=== PATIENT | female | born 1940 | race Caucasian/White ===

== ENCOUNTER 2020-03-03 08:59 | Inpatient (IN) | payer MEDICARE, MEDICAID ==
[~2020-03-03] VITALS: Ht 160 cm; Wt 74.8 kg
[~2020-03-03 08:59] MED LIST: ASPI-1497 PO; CLOP75TA4 PO; GABA-533 PO; GLYB2.5T4 PO; HYDR-4009 PO; LISI40TA4 PO; LORA0.5T2 PO; METF-416 PO; OXYC-90 PO; RANI150T7 PO
[2020-03-03] MEDS ORDERED: ACETAMINOPHEN 325MG TABLET PO ONE (10:00)
[2020-03-03] MEDS ORDERED: HYDROCODONE/ACETAMINOPHEN 5/325MG TABLET PO STA (12:13)
[2020-03-03 12:53] LABS: CHLORIDE 100 mEq/L (98-107)
[2020-03-03 13:33] LABS: BASOPHILS % 0.5 % (0.0-2.0); EOSINOPHILS % 0.1 % (0.0-5.0); HEMATOCRIT. 29.4 % (36.0-48.0); HEMOGLOBIN. 9.6 g/dL (12.0-16.0); LYMPHOCYTES % 7.8 % (20.0-50.0); MEAN CORPUSCULAR HEMOGLOBIN 24.8 pg (28.0-32.0); MEAN CORPUSCULAR VOLUME 75.9 fL (81.0-99.0); MEAN PLATELET VOLUME 8.6 fl (7.4-10.4); MONOCYTES % 10.2 % (2.0-8.0); NEUTROPHILS % 81.4 % (40.0-76.0); PLATELET 227 x1000/uL (130-400); RED BLOOD CELL COUNT 3.87 mill/uL (4.2-5.4); RED CELL DISTRIBUTION WIDTH 16.5 % (11.6-14.6)
[2020-03-03 16:40] VITALS: BP 153/69
[2020-03-03 17:15] VITALS: BP 152/69
[2020-03-03] MEDS ORDERED: DEXTROSE 50% WATER 50ML SYRINGE IV PRN (18:00)
[2020-03-03] MEDS ORDERED: CLONIDINE 0.1MG TABLET PO PRN (18:00)
[2020-03-03] MEDS ORDERED: ACETAMINOPHEN 325MG TABLET PO PRN ×2 (19:00)
[2020-03-03] MEDS ORDERED: ONDANSETRON HCL 4MG/2ML INJ IV PRN (19:00)
[2020-03-03] MEDS ORDERED: LORAZEPAM 0.5MG TABLET PO PRN (19:00)
[2020-03-03] MEDS ORDERED: DIPHENHYDRAMINE 50MG/ML VIAL IV PRN (19:00)
[2020-03-03] MEDS ORDERED: MAGNESIUM/ALUMINUM HYDROXIDE/SIMETHICONE 30ML UDC PO PRN (19:00)
[2020-03-03 20:00] VITALS: BP 190/76
[2020-03-03] MEDS: FAMOTIDINE 20MG TABLET PO SCH (20:36)
[2020-03-03] MEDS: HYDROCODONE/ACETAMINOPHEN 10/325MG TABLET PO PRN (20:36)
[2020-03-03] MEDS: LISINOPRIL 20MG TABLET PO SCH (20:37)
[2020-03-03] MEDS: BLOOD SUGAR DIAGNOSTIC STRIP TEST SCH (21:03)
[2020-03-03] MEDS: INSULIN LISPRO 100 UNITS/ML SUBCUT SCH (21:05)
[2020-03-03] MEDS: SODIUM CHLORIDE 0.9% INJ 3ML FLUSH IVF SCH (23:07)
[2020-03-03] MEDS: GABAPENTIN 400MG CAPSULE PO SCH (23:12)
[2020-03-04] VITALS: BP 102/61
[2020-03-04 04:00] VITALS: BP 112/70
[2020-03-04] MEDS: SODIUM CHLORIDE 0.9% INJ 3ML FLUSH IVF SCH ×3 (05:07→21:22)
[2020-03-04] MEDS: GABAPENTIN 400MG CAPSULE PO SCH ×3 (05:43→22:00)
[2020-03-04] MEDS: GLYBURIDE 2.5MG TABLET PO SCH (05:43)
[2020-03-04] MEDS: HYDROCODONE/ACETAMINOPHEN 10/325MG TABLET PO PRN (05:43)
[2020-03-04] MEDS: BLOOD SUGAR DIAGNOSTIC STRIP TEST SCH ×4 (07:02→21:20)
[2020-03-04 08:00] VITALS: BP 112/62
[2020-03-04] MEDS: METFORMIN HCL 500MG TABLET PO SCH ×2 (08:53→17:47)
[2020-03-04] MEDS: CLOPIDOGREL 75MG TABLET PO SCH (09:36)
[2020-03-04] MEDS: ASPIRIN 81MG EC TABLET PO SCH (09:36)
[2020-03-04] MEDS: LISINOPRIL 20MG TABLET PO SCH ×2 (09:36→21:00)
[2020-03-04] MEDS: INSULIN LISPRO 100 UNITS/ML SUBCUT SCH ×4 (09:47→21:00)
[2020-03-04 12:00] VITALS: BP 109/65
[2020-03-04 16:00] VITALS: BP 98/61
[2020-03-04 20:00] VITALS: BP 97/43
[2020-03-04] MEDS: FAMOTIDINE 20MG TABLET PO SCH (21:21)
[2020-03-05] VITALS (7 sets, daily range): BP systolic 99–129; BP diastolic 46–97
[2020-03-05] MEDS: GABAPENTIN 400MG CAPSULE PO SCH ×3 (06:23→21:16)
[2020-03-05] MEDS: SODIUM CHLORIDE 0.9% INJ 3ML FLUSH IVF SCH ×3 (06:23→21:25)
[2020-03-05] MEDS: GLYBURIDE 2.5MG TABLET PO SCH (06:23)
[2020-03-05] MEDS: BLOOD SUGAR DIAGNOSTIC STRIP TEST SCH ×4 (06:23→21:16)
[2020-03-05] MEDS: INSULIN LISPRO 100 UNITS/ML SUBCUT SCH ×4 (07:50→21:24)
[2020-03-05] MEDS: LISINOPRIL 20MG TABLET PO SCH ×2 (09:00→21:15)
[2020-03-05] MEDS: METFORMIN HCL 500MG TABLET PO SCH ×2 (09:57→17:25)
[2020-03-05] MEDS: ASPIRIN 81MG EC TABLET PO SCH (09:58)
[2020-03-05] MEDS: CLOPIDOGREL 75MG TABLET PO SCH (09:58)
[2020-03-05] MEDS: FAMOTIDINE 20MG TABLET PO SCH (21:16)
[2020-03-06] VITALS: BP 116/54
[2020-03-06 04:00] VITALS: BP 136/46
[2020-03-06] MEDS: GABAPENTIN 400MG CAPSULE PO SCH ×3 (06:14→21:30)
[2020-03-06] MEDS: BLOOD SUGAR DIAGNOSTIC STRIP TEST SCH ×4 (06:14→21:00)
[2020-03-06] MEDS: GLYBURIDE 2.5MG TABLET PO SCH (06:14)
[2020-03-06] MEDS: INSULIN LISPRO 100 UNITS/ML SUBCUT SCH ×4 (07:50→21:00)
[2020-03-06 08:00] VITALS: BP 142/54
[2020-03-06] MEDS: METFORMIN HCL 500MG TABLET PO SCH ×2 (08:43→17:54)
[2020-03-06] MEDS: CLOPIDOGREL 75MG TABLET PO SCH (08:44)
[2020-03-06] MEDS: ASPIRIN 81MG EC TABLET PO SCH (08:44)
[2020-03-06] MEDS: LISINOPRIL 20MG TABLET PO SCH ×2 (08:57→21:00)
[2020-03-06 12:00] VITALS: BP 108/40
[2020-03-06] MEDS: SODIUM CHLORIDE 0.9% INJ 3ML FLUSH IVF SCH (14:00)
[2020-03-06 16:00] VITALS: BP 119/79
[2020-03-06 20:00] VITALS: BP 104/75
[2020-03-06] MEDS: FAMOTIDINE 20MG TABLET PO SCH (21:30)
[2020-03-06] MEDS ORDERED: INSULIN GLARGINE UD 100 UNITS/ML SYR SUBCUT SCH (22:00)
[2020-03-07] VITALS: BP 121/67
[2020-03-07 04:00] VITALS: BP 112/49
[2020-03-07] MEDS: SODIUM CHLORIDE 0.9% INJ 3ML FLUSH IVF SCH ×2 (06:24→14:02)
[2020-03-07] MEDS: GABAPENTIN 400MG CAPSULE PO SCH ×2 (06:24→13:13)
[2020-03-07] MEDS: GLYBURIDE 2.5MG TABLET PO SCH (06:24)
[2020-03-07] MEDS: INSULIN LISPRO 100 UNITS/ML SUBCUT SCH ×2 (07:50→12:50)
[2020-03-07] MEDS: BLOOD SUGAR DIAGNOSTIC STRIP TEST SCH ×2 (07:55→12:20)
[2020-03-07 08:00] VITALS: BP 130/47
[2020-03-07] MEDS ORDERED: SODIUM CHLORIDE 0.9% 100 ML IV ONE (08:15)
[2020-03-07] MEDS ORDERED: SODIUM CHLORIDE 0.9% 1,000 ML IV ONE (08:30)
[2020-03-07] MEDS: ASPIRIN 81MG EC TABLET PO SCH (09:14)
[2020-03-07] MEDS: CLOPIDOGREL 75MG TABLET PO SCH (09:14)
[2020-03-07] MEDS: LISINOPRIL 20MG TABLET PO SCH (09:15)
[2020-03-07] MEDS: METFORMIN HCL 500MG TABLET PO SCH ×2 (09:17→17:31)
[2020-03-07 09:50] LABS: CLARITY URINE CLOUDY (CLEAR); COLOR URINE YELLOW (YELLOW); KETONES URINE TRACE (NEGATIVE); LEUKOCYTE ESTERASE URINE NEGATIVE (NEGATIVE); NITRITE URINE NEGATIVE (NEGATIVE); OCCULT BLOOD URINE NEGATIVE (NEGATIVE); PROTEIN URINE TRACE (NEGATIVE); SPECIFIC GRAVITY URINE 1.021 (1.005-1.030)
[2020-03-07 12:00] VITALS: BP 133/56
[2020-03-07 16:00] VITALS: BP 129/47
[2020-03-07] MEDS ORDERED: TAMSULOSIN HCL 0.4MG SR CAPSULE PO SCH (21:00)
[2020-03-07] MEDS ORDERED: ATORVASTATIN CALCIUM 20MG TABLET PO SCH (21:00)
== END 2020-03-07 18:09 | DRG 562 ==
LOC: ER 09:24 → 6EST 14:11 → ENRESERV 15:00 → 6EST 16:56
PROVIDERS: ADMIT Internal Medicine; ATTEND Internal Medicine
DX: S82.035A Nondisplaced transverse fracture of left patella, initial encounter for closed fracture (principal); G93.41 Metabolic encephalopathy; I63.81 Other cerebral infarction due to occlusion or stenosis of small artery; E11.51 Type 2 diabetes mellitus with diabetic peripheral angiopathy without gangrene; I10 Essential (primary) hypertension; I25.10 Atherosclerotic heart disease of native coronary artery without angina pectoris; W18.30XA Fall on same level, unspecified, initial encounter; E78.00 Pure hypercholesterolemia, unspecified; F17.200 Nicotine dependence, unspecified, uncomplicated; D64.9 Anemia, unspecified; F03.90 Unspecified dementia, unspecified severity, without behavioral disturbance, psychotic disturbance, mood disturbance, and anxiety; R26.2 Difficulty in walking, not elsewhere classified; R41.89 Other symptoms and signs involving cognitive functions and awareness; M19.90 Unspecified osteoarthritis, unspecified site; Z96.642 Presence of left artificial hip joint; R33.9 Retention of urine, unspecified; I25.2 Old myocardial infarction; Z86.73 Personal history of transient ischemic attack (TIA), and cerebral infarction without residual deficits; Z79.891 Long term (current) use of opiate analgesic; Z79.82 Long term (current) use of aspirin; Z79.899 Other long term (current) drug therapy; Y93.89 Activity, other specified; Y92.89 Other specified places as the place of occurrence of the external cause; Y99.8 Other external cause status; Z95.5 Presence of coronary angioplasty implant and graft
CPT/HCPCS: 36415; 70551; 73560; 80053; 80061; 81003; 82140; 82962; 83036; 85025; 92523; 92610; 93005; 93306; 93880; 93970; 97162; 97166; 97530; 97535; 99285; J1200; J1815

== ENCOUNTER 2020-03-07 18:20 | Inpatient (IN) | payer MEDICARE, MEDICAID ==
[~2020-03-07] VITALS: Ht 160 cm; Wt 74.4 kg
[2020-03-07] MEDS ORDERED: DEXTROSE 50% WATER 50ML SYRINGE IV PRN (19:15)
[2020-03-07] MEDS ORDERED: DIPHENHYDRAMINE 25MG CAPSULE PO PRN (19:30)
[2020-03-07] MEDS ORDERED: CLONIDINE 0.1MG TABLET PO PRN (19:30)
[2020-03-07] MEDS ORDERED: HYDROCODONE/ACETAMINOPHEN 10/325MG TABLET PO PRN (19:50)
[2020-03-07] MEDS ORDERED: HYDROCODONE/ACETAMINOPHEN 5/325MG TABLET PO PRN (19:51)
[2020-03-07 20:00] VITALS: BP 136/44
[2020-03-07] MEDS: BLOOD SUGAR DIAGNOSTIC STRIP TEST SCH (20:11)
[2020-03-07] MEDS: INSULIN GLARGINE UD 100 UNITS/ML SYR SUBCUT SCH (20:16)
[2020-03-07] MEDS: INSULIN LISPRO 100 UNITS/ML SUBCUT SCH (20:16)
[2020-03-07] MEDS: FAMOTIDINE 20MG TABLET PO SCH (21:18)
[2020-03-07] MEDS: TAMSULOSIN HCL 0.4MG SR CAPSULE PO SCH (21:18)
[2020-03-07] MEDS: GABAPENTIN 400MG CAPSULE PO SCH (21:18)
[2020-03-07] MEDS: ATORVASTATIN CALCIUM 20MG TABLET PO SCH (21:19)
[2020-03-07] MEDS: LISINOPRIL 20MG TABLET PO SCH (21:19)
[2020-03-08] MEDS: LORAZEPAM 0.5MG TABLET PO PRN ×2 (01:41→21:39)
[2020-03-08] MEDS: BISACODYL 5MG TABLET PO PRN (05:21)
[2020-03-08] MEDS: BLOOD SUGAR DIAGNOSTIC STRIP TEST SCH ×4 (05:36→21:25)
[2020-03-08] MEDS: GABAPENTIN 400MG CAPSULE PO SCH ×3 (06:01→21:24)
[2020-03-08] MEDS: GLYBURIDE 2.5MG TABLET PO SCH (06:02)
[2020-03-08 06:35] LABS: BASOPHILS % 0.6 % (0.0-2.0); EOSINOPHILS % 2.1 % (0.0-5.0); HEMOGLOBIN. 9.1 g/dL (12.0-16.0); LYMPHOCYTES % 17.3 % (20.0-50.0); MEAN CORPUSCULAR HEMOGLOBIN 24.3 pg (28.0-32.0); MEAN CORPUSCULAR VOLUME 77.3 fL (81.0-99.0); MEAN PLATELET VOLUME 8.5 fl (7.4-10.4); PLATELET 278 x1000/uL (130-400); RED BLOOD CELL COUNT 3.75 mill/uL (4.2-5.4)
[2020-03-08 06:50] LABS: CHLORIDE 107 mEq/L (98-107)
[2020-03-08 08:00] VITALS: BP 127/64
[2020-03-08] MEDS: METFORMIN HCL 500MG TABLET PO SCH (08:49)
[2020-03-08] MEDS: ASPIRIN 81MG TABLET PO SCH (08:49)
[2020-03-08] MEDS: CLOPIDOGREL 75MG TABLET PO SCH (08:49)
[2020-03-08] MEDS: LISINOPRIL 20MG TABLET PO SCH ×2 (08:49→21:25)
[2020-03-08] MEDS: INSULIN LISPRO 100 UNITS/ML SUBCUT SCH ×4 (08:50→21:00)
[2020-03-08] MEDS: SODIUM CHLORIDE 0.9% 1,000 ML IV SCH ×2 (08:50→17:51)
[2020-03-08] MEDS: NICOTINE 14MG PATCH TD SCH (10:40)
[2020-03-08 20:00] VITALS: BP 131/72
[2020-03-08] MEDS: ATORVASTATIN CALCIUM 20MG TABLET PO SCH (21:24)
[2020-03-08] MEDS: FAMOTIDINE 20MG TABLET PO SCH (21:24)
[2020-03-08] MEDS: TAMSULOSIN HCL 0.4MG SR CAPSULE PO SCH (21:25)
[2020-03-08] MEDS: INSULIN GLARGINE UD 100 UNITS/ML SYR SUBCUT SCH (21:26)
[2020-03-09 03:11] LABS: CLARITY URINE CLEAR (CLEAR); COLOR URINE YELLOW (YELLOW); KETONES URINE NEGATIVE (NEGATIVE); LEUKOCYTE ESTERASE URINE NEGATIVE (NEGATIVE); NITRITE URINE NEGATIVE (NEGATIVE); OCCULT BLOOD URINE NEGATIVE (NEGATIVE); PROTEIN URINE TRACE (NEGATIVE)
[2020-03-09] MEDS: SODIUM CHLORIDE 0.9% 1,000 ML IV SCH ×2 (05:40→14:04)
[2020-03-09] MEDS: BLOOD SUGAR DIAGNOSTIC STRIP TEST SCH ×4 (06:01→21:00)
[2020-03-09] MEDS: GABAPENTIN 400MG CAPSULE PO SCH ×3 (06:01→21:59)
[2020-03-09] MEDS: GLYBURIDE 2.5MG TABLET PO SCH (06:01)
[2020-03-09 07:18] LABS: BASOPHILS % 0.5 % (0.0-2.0); EOSINOPHILS % 2.1 % (0.0-5.0); HEMATOCRIT. 26.8 % (36.0-48.0); HEMOGLOBIN. 8.7 g/dL (12.0-16.0); LYMPHOCYTES % 21.3 % (20.0-50.0); MEAN CORPUSCULAR HEMOGLOBIN 24.7 pg (28.0-32.0); MEAN CORPUSCULAR VOLUME 76.4 fL (81.0-99.0); MEAN PLATELET VOLUME 8.3 fl (7.4-10.4); MONOCYTES % 11.1 % (2.0-8.0); PLATELET 293 x1000/uL (130-400); RED BLOOD CELL COUNT 3.51 mill/uL (4.2-5.4); RED CELL DISTRIBUTION WIDTH 16.8 % (11.6-14.6)
[2020-03-09] MEDS: INSULIN LISPRO 100 UNITS/ML SUBCUT SCH ×4 (07:24→21:00)
[2020-03-09 07:51] LABS: CHLORIDE 107 mEq/L (98-107)
[2020-03-09 07:58] VITALS: BP 135/69
[2020-03-09 08:04] LABS: PHOSPHORUS 2.9 mg/dL (2.5-4.9); TOTAL IRON BINDING CAPACITY 285 ug/dL (250-450)
[2020-03-09] MEDS: ASPIRIN 81MG TABLET PO SCH (08:29)
[2020-03-09] MEDS: LISINOPRIL 20MG TABLET PO SCH ×2 (08:29→22:00)
[2020-03-09] MEDS: NICOTINE 14MG PATCH TD SCH (08:29)
[2020-03-09] MEDS: CLOPIDOGREL 75MG TABLET PO SCH (08:29)
[2020-03-09 09:57] LABS: FOLIC ACID (FOLATE) SERUM 17.6 ng/mL (>5.38)
[2020-03-09] MEDS: CYANOCOBALAMIN 1000MCG/ML VIAL IM SCH (15:51)
[2020-03-09 20:00] VITALS: BP 149/75
[2020-03-09] MEDS: IRON SUCROSE COMPLEX 100 MG in SODIUM CHLORIDE 0.9% 100 ML IV SCH (21:58)
[2020-03-09] MEDS: ATORVASTATIN CALCIUM 20MG TABLET PO SCH (21:59)
[2020-03-09] MEDS: FAMOTIDINE 20MG TABLET PO SCH (21:59)
[2020-03-09] MEDS: TAMSULOSIN HCL 0.4MG SR CAPSULE PO SCH (21:59)
[2020-03-09] MEDS: INSULIN GLARGINE UD 100 UNITS/ML SYR SUBCUT SCH (22:52)
[2020-03-10] MEDS: GABAPENTIN 400MG CAPSULE PO SCH ×3 (06:23→21:38)
[2020-03-10] MEDS: GLYBURIDE 2.5MG TABLET PO SCH (06:23)
[2020-03-10] MEDS: SODIUM CHLORIDE 0.9% 1,000 ML IV SCH ×2 (06:24→10:00)
[2020-03-10] MEDS: BLOOD SUGAR DIAGNOSTIC STRIP TEST SCH ×4 (06:40→21:38)
[2020-03-10 09:00] VITALS: BP 154/93
[2020-03-10] MEDS: INSULIN LISPRO 100 UNITS/ML SUBCUT SCH ×4 (09:00→21:00)
[2020-03-10] MEDS: CLOPIDOGREL 75MG TABLET PO SCH (09:30)
[2020-03-10] MEDS: LISINOPRIL 20MG TABLET PO SCH ×2 (09:30→21:38)
[2020-03-10] MEDS: CYANOCOBALAMIN 1000MCG/ML VIAL IM SCH (09:30)
[2020-03-10] MEDS: ASPIRIN 81MG TABLET PO SCH (09:30)
[2020-03-10] MEDS: NICOTINE 14MG PATCH TD SCH (09:33)
[2020-03-10] MEDS: MAGNESIUM/ALUMINUM HYDROXIDE/SIMETHICONE 30ML UDC PO PRN (11:55)
[2020-03-10 20:00] VITALS: BP 134/68
[2020-03-10] MEDS: IRON SUCROSE COMPLEX 100 MG in SODIUM CHLORIDE 0.9% 100 ML IV SCH (21:35)
[2020-03-10] MEDS: FAMOTIDINE 20MG TABLET PO SCH (21:36)
[2020-03-10] MEDS: TAMSULOSIN HCL 0.4MG SR CAPSULE PO SCH (21:37)
[2020-03-10] MEDS: ATORVASTATIN CALCIUM 20MG TABLET PO SCH (21:37)
[2020-03-10] MEDS: INSULIN GLARGINE UD 100 UNITS/ML SYR SUBCUT SCH (22:58)
[2020-03-11] MEDS: SODIUM CHLORIDE 0.9% 1,000 ML IV SCH ×3 (00:53→16:39)
[2020-03-11] MEDS: GABAPENTIN 400MG CAPSULE PO SCH ×3 (06:21→21:13)
[2020-03-11] MEDS: GLYBURIDE 2.5MG TABLET PO SCH (06:21)
[2020-03-11] MEDS: BLOOD SUGAR DIAGNOSTIC STRIP TEST SCH ×4 (06:21→20:45)
[2020-03-11 07:23] VITALS: BP 140/62
[2020-03-11 07:24] LABS: BASOPHILS % 0.3 % (0.0-2.0); EOSINOPHILS % 1.5 % (0.0-5.0); HEMATOCRIT. 24.1 % (36.0-48.0); HEMOGLOBIN. 7.6 g/dL (12.0-16.0); LYMPHOCYTES % 19.7 % (20.0-50.0); MEAN CORPUSCULAR HEMOGLOBIN 24.4 pg (28.0-32.0); MEAN CORPUSCULAR VOLUME 77.3 fL (81.0-99.0); MONOCYTES % 8.2 % (2.0-8.0); NEUTROPHILS % 70.3 % (40.0-76.0); PLATELET 284 x1000/uL (130-400); RED BLOOD CELL COUNT 3.12 mill/uL (4.2-5.4); RED CELL DISTRIBUTION WIDTH 16.8 % (11.6-14.6)
[2020-03-11] MEDS: ASPIRIN 81MG TABLET PO SCH (08:57)
[2020-03-11] MEDS: LISINOPRIL 20MG TABLET PO SCH ×2 (08:57→20:44)
[2020-03-11] MEDS: CLOPIDOGREL 75MG TABLET PO SCH (08:57)
[2020-03-11] MEDS: NICOTINE 14MG PATCH TD SCH (08:57)
[2020-03-11] MEDS: CYANOCOBALAMIN 1000MCG/ML VIAL IM SCH (08:57)
[2020-03-11] MEDS: METFORMIN HCL 500MG TABLET PO SCH ×2 (08:57→16:38)
[2020-03-11] MEDS: INSULIN LISPRO 100 UNITS/ML SUBCUT SCH ×4 (08:58→20:50)
[2020-03-11] MEDS ORDERED: LACTULOSE 20G/30ML UDC PO NR (17:04)
[2020-03-11 20:00] VITALS: BP 133/63
[2020-03-11] MEDS: IRON SUCROSE COMPLEX 100 MG in SODIUM CHLORIDE 0.9% 100 ML IV SCH (20:44)
[2020-03-11] MEDS: FAMOTIDINE 20MG TABLET PO SCH (20:44)
[2020-03-11] MEDS: ATORVASTATIN CALCIUM 20MG TABLET PO SCH (20:44)
[2020-03-11] MEDS: TAMSULOSIN HCL 0.4MG SR CAPSULE PO SCH (20:45)
[2020-03-11] MEDS: INSULIN GLARGINE UD 100 UNITS/ML SYR SUBCUT SCH (21:13)
[2020-03-12] MEDS: SODIUM CHLORIDE 0.9% 1,000 ML IV SCH ×2 (02:07→12:54)
[2020-03-12 05:44] LABS: BASOPHILS % 0.5 % (0.0-2.0); HEMATOCRIT. 24.3 % (36.0-48.0); HEMOGLOBIN. 7.9 g/dL (12.0-16.0); LYMPHOCYTES % 23.6 % (20.0-50.0); MEAN CORPUSCULAR VOLUME 76.7 fL (81.0-99.0); MEAN PLATELET VOLUME 8.1 fl (7.4-10.4); MONOCYTES % 9.1 % (2.0-8.0); NEUTROPHILS % 64.8 % (40.0-76.0); PLATELET 299 x1000/uL (130-400); RED BLOOD CELL COUNT 3.17 mill/uL (4.2-5.4)
[2020-03-12] MEDS: ACETAMINOPHEN 325MG TABLET PO PRN ×2 (05:53→20:52)
[2020-03-12] MEDS: GABAPENTIN 400MG CAPSULE PO SCH ×3 (05:53→20:53)
[2020-03-12] MEDS: BLOOD SUGAR DIAGNOSTIC STRIP TEST SCH ×4 (05:53→21:00)
[2020-03-12] MEDS: GLYBURIDE 2.5MG TABLET PO SCH (05:53)
[2020-03-12] MEDS: INSULIN LISPRO 100 UNITS/ML SUBCUT SCH ×4 (06:01→21:00)
[2020-03-12 08:18] VITALS: BP 148/63
[2020-03-12] MEDS: NICOTINE 14MG PATCH TD SCH (08:21)
[2020-03-12] MEDS: METFORMIN HCL 500MG TABLET PO SCH ×2 (08:22→17:09)
[2020-03-12] MEDS: CYANOCOBALAMIN 1000MCG/ML VIAL IM SCH (08:22)
[2020-03-12] MEDS: CLOPIDOGREL 75MG TABLET PO SCH (08:22)
[2020-03-12] MEDS: LISINOPRIL 20MG TABLET PO SCH ×2 (08:22→21:00)
[2020-03-12] MEDS: ASPIRIN 81MG TABLET PO SCH (08:22)
[2020-03-12 14:47] LABS: CLARITY URINE CLOUDY (CLEAR); COLOR URINE ORANGE (YELLOW); KETONES URINE NEGATIVE (NEGATIVE); LEUKOCYTE ESTERASE URINE 2+ (NEGATIVE); NITRITE URINE NEGATIVE (NEGATIVE); OCCULT BLOOD URINE 3+ (NEGATIVE); PROTEIN URINE 2+ (NEGATIVE); SPECIFIC GRAVITY URINE 1.016 (1.005-1.030)
[2020-03-12] MEDS ORDERED: LEVOFLOXACIN 500MG TABLET PO NR (16:54)
[2020-03-12 20:00] VITALS: BP 152/56
[2020-03-12] MEDS: IRON SUCROSE COMPLEX 100 MG in SODIUM CHLORIDE 0.9% 100 ML IV SCH (20:52)
[2020-03-12] MEDS: FAMOTIDINE 20MG TABLET PO SCH (20:53)
[2020-03-12] MEDS: TAMSULOSIN HCL 0.4MG SR CAPSULE PO SCH (20:53)
[2020-03-12] MEDS: ATORVASTATIN CALCIUM 20MG TABLET PO SCH (20:53)
[2020-03-12] MEDS: INSULIN GLARGINE UD 100 UNITS/ML SYR SUBCUT SCH (22:00)
[2020-03-13] VITALS: BP 130/69
[2020-03-13] MEDS: ACETAMINOPHEN 325MG TABLET PO PRN ×2 (03:34→10:42)
[2020-03-13] MEDS: GABAPENTIN 400MG CAPSULE PO SCH ×3 (06:11→21:36)
[2020-03-13] MEDS: GLYBURIDE 2.5MG TABLET PO SCH (06:12)
[2020-03-13] MEDS: BLOOD SUGAR DIAGNOSTIC STRIP TEST SCH ×4 (06:12→21:37)
[2020-03-13] MEDS: INSULIN LISPRO 100 UNITS/ML SUBCUT SCH ×4 (06:39→21:00)
[2020-03-13 07:10] LABS: 25-HYDROXY VITAMIN D3 10 ng/mL (.)
[2020-03-13 08:18] VITALS: BP 154/50
[2020-03-13] MEDS: METFORMIN HCL 500MG TABLET PO SCH ×2 (08:29→16:47)
[2020-03-13] MEDS: NICOTINE 14MG PATCH TD SCH (08:29)
[2020-03-13] MEDS: CLOPIDOGREL 75MG TABLET PO SCH (08:30)
[2020-03-13] MEDS: ASPIRIN 81MG TABLET PO SCH (08:30)
[2020-03-13] MEDS: CYANOCOBALAMIN 1000MCG/ML VIAL IM SCH (08:30)
[2020-03-13] MEDS: LISINOPRIL 20MG TABLET PO SCH ×2 (08:30→21:37)
[2020-03-13] MEDS: LEVOFLOXACIN 250MG TABLET PO SCH (10:42)
[2020-03-13] MEDS ORDERED: LEVOFLOXACIN 500MG TABLET PO SCH (11:00)
[2020-03-13] MEDS: ERGOCALCIFEROL 50000UNITS CAPSULE PO SCH (13:48)
[2020-03-13 20:00] VITALS: BP 131/50
[2020-03-13] MEDS: IRON SUCROSE COMPLEX 100 MG in SODIUM CHLORIDE 0.9% 100 ML IV SCH (21:36)
[2020-03-13] MEDS: ATORVASTATIN CALCIUM 20MG TABLET PO SCH (21:36)
[2020-03-13] MEDS: FAMOTIDINE 20MG TABLET PO SCH (21:36)
[2020-03-13] MEDS: TAMSULOSIN HCL 0.4MG SR CAPSULE PO SCH (21:37)
[2020-03-13] MEDS: INSULIN GLARGINE UD 100 UNITS/ML SYR SUBCUT SCH (21:39)
[2020-03-14] MEDS: ACETAMINOPHEN 325MG TABLET PO PRN ×3 (00:41→20:22)
[2020-03-14] MEDS: GABAPENTIN 400MG CAPSULE PO SCH ×3 (05:47→21:15)
[2020-03-14] MEDS: BLOOD SUGAR DIAGNOSTIC STRIP TEST SCH ×4 (05:48→20:23)
[2020-03-14] MEDS: INSULIN LISPRO 100 UNITS/ML SUBCUT SCH ×4 (06:38→20:28)
[2020-03-14] MEDS: GLYBURIDE 2.5MG TABLET PO SCH (06:38)
[2020-03-14 07:55] VITALS: BP 110/54
[2020-03-14] MEDS: METFORMIN HCL 500MG TABLET PO SCH ×2 (08:22→17:33)
[2020-03-14] MEDS: CYANOCOBALAMIN 1000MCG/ML VIAL IM SCH (08:22)
[2020-03-14] MEDS: LISINOPRIL 20MG TABLET PO SCH ×3 (08:22→20:22)
[2020-03-14] MEDS: ASPIRIN 81MG TABLET PO SCH (08:22)
[2020-03-14] MEDS: CLOPIDOGREL 75MG TABLET PO SCH (08:22)
[2020-03-14] MEDS: NICOTINE 14MG PATCH TD SCH (08:23)
[2020-03-14] MEDS: LEVOFLOXACIN 250MG TABLET PO SCH (10:24)
[2020-03-14 12:18] LABS: TOTAL IRON BINDING CAPACITY 412 ug/dL (250-450)
[2020-03-14] MEDS ORDERED: LACTULOSE 20G/30ML UDC PO SCH (13:00)
[2020-03-14 20:00] VITALS: BP 127/58
[2020-03-14] MEDS: ATORVASTATIN CALCIUM 20MG TABLET PO SCH (20:21)
[2020-03-14] MEDS: FAMOTIDINE 20MG TABLET PO SCH (20:21)
[2020-03-14] MEDS: TAMSULOSIN HCL 0.4MG SR CAPSULE PO SCH (20:22)
[2020-03-14] MEDS: INSULIN GLARGINE UD 100 UNITS/ML SYR SUBCUT SCH (21:13)
[2020-03-15] MEDS: ACETAMINOPHEN 325MG TABLET PO PRN (05:46)
[2020-03-15] MEDS: GABAPENTIN 400MG CAPSULE PO SCH ×3 (05:46→21:02)
[2020-03-15] MEDS: GLYBURIDE 2.5MG TABLET PO SCH (05:46)
[2020-03-15] MEDS: BLOOD SUGAR DIAGNOSTIC STRIP TEST SCH ×4 (05:53→20:23)
[2020-03-15] MEDS: INSULIN LISPRO 100 UNITS/ML SUBCUT SCH ×4 (05:53→20:23)
[2020-03-15 08:28] VITALS: BP 131/50
[2020-03-15] MEDS: METFORMIN HCL 500MG TABLET PO SCH ×2 (08:48→17:47)
[2020-03-15] MEDS: CYANOCOBALAMIN 1000MCG/ML VIAL IM SCH (08:48)
[2020-03-15] MEDS: LISINOPRIL 20MG TABLET PO SCH ×2 (08:49→20:22)
[2020-03-15] MEDS: ASPIRIN 81MG TABLET PO SCH (08:49)
[2020-03-15] MEDS: NICOTINE 14MG PATCH TD SCH (08:49)
[2020-03-15] MEDS: CLOPIDOGREL 75MG TABLET PO SCH (08:49)
[2020-03-15] MEDS: LEVOFLOXACIN 250MG TABLET PO SCH (11:28)
[2020-03-15 20:00] VITALS: BP 126/54
[2020-03-15] MEDS: TAMSULOSIN HCL 0.4MG SR CAPSULE PO SCH (20:22)
[2020-03-15] MEDS: FAMOTIDINE 20MG TABLET PO SCH (20:22)
[2020-03-15] MEDS: ATORVASTATIN CALCIUM 20MG TABLET PO SCH (20:22)
[2020-03-15] MEDS: INSULIN GLARGINE UD 100 UNITS/ML SYR SUBCUT SCH (22:18)
[2020-03-15] MEDS: DIPHENHYDRAMINE 25MG CAPSULE PO PRN (23:56)
[2020-03-16] MEDS: INSULIN LISPRO 100 UNITS/ML SUBCUT SCH ×4 (06:25→21:00)
[2020-03-16] MEDS: GLYBURIDE 2.5MG TABLET PO SCH (06:25)
[2020-03-16] MEDS: BLOOD SUGAR DIAGNOSTIC STRIP TEST SCH ×4 (06:25→21:25)
[2020-03-16] MEDS: GABAPENTIN 400MG CAPSULE PO SCH ×3 (06:25→21:26)
[2020-03-16 06:42] LABS: BASOPHILS % 0.8 % (0.0-2.0); EOSINOPHILS % 2.7 % (0.0-5.0); HEMATOCRIT. 28.2 % (36.0-48.0); HEMOGLOBIN. 9.1 g/dL (12.0-16.0); LYMPHOCYTES % 20.4 % (20.0-50.0); MEAN CORPUSCULAR HEMOGLOBIN 25.3 pg (28.0-32.0); MEAN CORPUSCULAR VOLUME 78.5 fL (81.0-99.0); MEAN PLATELET VOLUME 7.8 fl (7.4-10.4); MONOCYTES % 8.6 % (2.0-8.0); NEUTROPHILS % 67.5 % (40.0-76.0); PLATELET 316 x1000/uL (130-400); RED BLOOD CELL COUNT 3.59 mill/uL (4.2-5.4)
[2020-03-16] MEDS: ACETAMINOPHEN 325MG TABLET PO PRN (07:14)
[2020-03-16 08:00] VITALS: BP 112/58
[2020-03-16] MEDS: CLOPIDOGREL 75MG TABLET PO SCH (09:47)
[2020-03-16] MEDS: ASPIRIN 81MG TABLET PO SCH (09:47)
[2020-03-16] MEDS: METFORMIN HCL 500MG TABLET PO SCH ×2 (09:48→17:00)
[2020-03-16] MEDS: LISINOPRIL 20MG TABLET PO SCH ×2 (09:48→21:25)
[2020-03-16] MEDS: NICOTINE 14MG PATCH TD SCH (09:48)
[2020-03-16] MEDS: ONDANSETRON HCL 4MG TABLET PO PRN (11:18)
[2020-03-16] MEDS: LEVOFLOXACIN 250MG TABLET PO SCH (12:17)
[2020-03-16] MEDS: MAGNESIUM/ALUMINUM HYDROXIDE/SIMETHICONE 30ML UDC PO PRN (15:17)
[2020-03-16] MEDS ORDERED: LACTULOSE 20G/30ML UDC PO NR (17:34)
[2020-03-16 20:00] VITALS: BP 129/58
[2020-03-16] MEDS: TAMSULOSIN HCL 0.4MG SR CAPSULE PO SCH (21:25)
[2020-03-16] MEDS: ATORVASTATIN CALCIUM 20MG TABLET PO SCH (21:25)
[2020-03-16] MEDS: FAMOTIDINE 20MG TABLET PO SCH (21:25)
[2020-03-16] MEDS: DIPHENHYDRAMINE 25MG CAPSULE PO PRN (21:26)
[2020-03-16] MEDS: INSULIN GLARGINE UD 100 UNITS/ML SYR SUBCUT SCH (21:26)
[2020-03-17] MEDS: GABAPENTIN 400MG CAPSULE PO SCH ×3 (05:37→21:51)
[2020-03-17] MEDS: BISACODYL 5MG TABLET PO PRN (05:37)
[2020-03-17] MEDS: BLOOD SUGAR DIAGNOSTIC STRIP TEST SCH ×4 (05:38→20:20)
[2020-03-17] MEDS: INSULIN LISPRO 100 UNITS/ML SUBCUT SCH ×4 (05:38→20:20)
[2020-03-17] MEDS: GLYBURIDE 2.5MG TABLET PO SCH (06:28)
[2020-03-17] MEDS: METFORMIN HCL 500MG TABLET PO SCH ×2 (08:24→16:51)
[2020-03-17] MEDS: CLOPIDOGREL 75MG TABLET PO SCH (08:25)
[2020-03-17] MEDS: LISINOPRIL 20MG TABLET PO SCH ×2 (08:25→20:20)
[2020-03-17] MEDS: NICOTINE 14MG PATCH TD SCH (08:25)
[2020-03-17] MEDS: ASPIRIN 81MG TABLET PO SCH (08:25)
[2020-03-17 08:30] VITALS: BP 104/53
[2020-03-17] MEDS: LACTULOSE 20G/30ML UDC PO SCH ×2 (15:16→16:51)
[2020-03-17 20:00] VITALS: BP 128/80
[2020-03-17] MEDS: ATORVASTATIN CALCIUM 20MG TABLET PO SCH (20:20)
[2020-03-17] MEDS: TAMSULOSIN HCL 0.4MG SR CAPSULE PO SCH (20:20)
[2020-03-17] MEDS: FAMOTIDINE 20MG TABLET PO SCH (20:20)
[2020-03-17] MEDS: ONDANSETRON HCL 4MG TABLET PO PRN (20:33)
[2020-03-17] MEDS: INSULIN GLARGINE UD 100 UNITS/ML SYR SUBCUT SCH (22:00)
[2020-03-17] MEDS: DIPHENHYDRAMINE 25MG CAPSULE PO PRN (22:45)
[2020-03-18] MEDS: GABAPENTIN 400MG CAPSULE PO SCH ×3 (05:52→21:29)
[2020-03-18] MEDS: INSULIN LISPRO 100 UNITS/ML SUBCUT SCH ×4 (05:53→21:00)
[2020-03-18] MEDS: BLOOD SUGAR DIAGNOSTIC STRIP TEST SCH ×4 (05:53→21:31)
[2020-03-18] MEDS: GLYBURIDE 2.5MG TABLET PO SCH (06:08)
[2020-03-18 06:46] LABS: BASOPHILS % 0.8 % (0.0-2.0); EOSINOPHILS % 3.7 % (0.0-5.0); HEMATOCRIT. 26.8 % (36.0-48.0); HEMOGLOBIN. 8.7 g/dL (12.0-16.0); LYMPHOCYTES % 21.3 % (20.0-50.0); MEAN CORPUSCULAR VOLUME 79.8 fL (81.0-99.0); MEAN PLATELET VOLUME 7.7 fl (7.4-10.4); MONOCYTES % 7.1 % (2.0-8.0); NEUTROPHILS % 67.1 % (40.0-76.0); PLATELET 297 x1000/uL (130-400); RED BLOOD CELL COUNT 3.36 mill/uL (4.2-5.4); RED CELL DISTRIBUTION WIDTH 17.4 % (11.6-14.6)
[2020-03-18 08:12] VITALS: BP 91/45
[2020-03-18] MEDS: ONDANSETRON HCL 4MG TABLET PO PRN (08:22)
[2020-03-18] MEDS: METFORMIN HCL 500MG TABLET PO SCH ×3 (08:55→16:45)
[2020-03-18] MEDS: CLOPIDOGREL 75MG TABLET PO SCH (08:56)
[2020-03-18] MEDS: NICOTINE 14MG PATCH TD SCH (08:56)
[2020-03-18] MEDS: ASPIRIN 81MG TABLET PO SCH (08:57)
[2020-03-18] MEDS: LISINOPRIL 20MG TABLET PO SCH ×2 (08:57→21:30)
[2020-03-18 20:00] VITALS: BP 132/56
[2020-03-18] MEDS: TAMSULOSIN HCL 0.4MG SR CAPSULE PO SCH (21:29)
[2020-03-18] MEDS: FAMOTIDINE 20MG TABLET PO SCH (21:30)
[2020-03-18] MEDS: ATORVASTATIN CALCIUM 20MG TABLET PO SCH (21:33)
[2020-03-18] MEDS ORDERED: INSULIN GLARGINE UD 100 UNITS/ML SYR SUBCUT SCH (22:00)
[2020-03-19] MEDS: DIPHENHYDRAMINE 25MG CAPSULE PO PRN (01:29)
[2020-03-19] MEDS: GABAPENTIN 400MG CAPSULE PO SCH ×3 (05:31→21:32)
[2020-03-19] MEDS: ACETAMINOPHEN 325MG TABLET PO PRN (05:31)
[2020-03-19] MEDS: BLOOD SUGAR DIAGNOSTIC STRIP TEST SCH ×4 (06:26→21:34)
[2020-03-19] MEDS: INSULIN LISPRO 100 UNITS/ML SUBCUT SCH (06:53)
[2020-03-19 08:02] VITALS: BP 126/51
[2020-03-19] MEDS: METFORMIN HCL 500MG TABLET PO SCH (08:47)
[2020-03-19] MEDS: NICOTINE 14MG PATCH TD SCH (08:47)
[2020-03-19] MEDS: LISINOPRIL 20MG TABLET PO SCH ×2 (08:48→21:32)
[2020-03-19] MEDS: ASPIRIN 81MG TABLET PO SCH (08:48)
[2020-03-19] MEDS: CLOPIDOGREL 75MG TABLET PO SCH (08:48)
[2020-03-19] MEDS: INSULIN LISPRO (LOW DOSE) 100 UNITS/ML SUBCUT SCH ×2 (12:02→16:35)
[2020-03-19] MEDS ORDERED: INSULIN LISPRO 100 UNITS/ML SUBCUT SCH (13:00)
[2020-03-19] MEDS: BISACODYL 5MG TABLET PO PRN (17:31)
[2020-03-19 20:00] VITALS: BP 130/66
[2020-03-19] MEDS: FAMOTIDINE 20MG TABLET PO SCH (21:31)
[2020-03-19] MEDS: ATORVASTATIN CALCIUM 20MG TABLET PO SCH (21:32)
[2020-03-19] MEDS: TAMSULOSIN HCL 0.4MG SR CAPSULE PO SCH (21:32)
[2020-03-20] MEDS: GABAPENTIN 400MG CAPSULE PO SCH ×3 (05:48→21:45)
[2020-03-20 06:54] LABS: T4 FREE 1.07 ng/dL (0.76-1.46)
[2020-03-20] MEDS: BLOOD SUGAR DIAGNOSTIC STRIP TEST SCH ×4 (06:54→21:46)
[2020-03-20] MEDS: INSULIN LISPRO (LOW DOSE) 100 UNITS/ML SUBCUT SCH ×3 (06:54→16:43)
[2020-03-20 07:52] VITALS: BP 97/51
[2020-03-20 08:10] VITALS: BP 97/51
[2020-03-20] MEDS: LISINOPRIL 20MG TABLET PO SCH ×2 (09:00→21:45)
[2020-03-20] MEDS ORDERED: DOCUSATE SODIUM 250MG CAPSULE PO SCH (09:00)
[2020-03-20] MEDS: ASPIRIN 81MG TABLET PO SCH (09:04)
[2020-03-20] MEDS: NICOTINE 14MG PATCH TD SCH (09:04)
[2020-03-20] MEDS: CLOPIDOGREL 75MG TABLET PO SCH (09:04)
[2020-03-20] MEDS: METFORMIN HCL 500MG TABLET PO SCH (09:04)
[2020-03-20] MEDS: ERGOCALCIFEROL 50000UNITS CAPSULE PO SCH (09:04)
[2020-03-20] MEDS: ACETAMINOPHEN 325MG TABLET PO PRN (10:12)
[2020-03-20] MEDS: DOCUSATE SODIUM 250MG CAPSULE PO SCH (17:06)
[2020-03-20] MEDS: BISACODYL 5MG TABLET PO PRN (17:06)
[2020-03-20 20:00] VITALS: BP 123/62
[2020-03-20] MEDS: FAMOTIDINE 20MG TABLET PO SCH (21:44)
[2020-03-20] MEDS: ATORVASTATIN CALCIUM 20MG TABLET PO SCH (21:46)
[2020-03-20] MEDS: TAMSULOSIN HCL 0.4MG SR CAPSULE PO SCH (21:46)
[2020-03-20] MEDS: SENNOSIDES 8.6MG TABLET PO SCH (21:46)
[2020-03-21] MEDS: DIPHENHYDRAMINE 25MG CAPSULE PO PRN (00:27)
[2020-03-21] MEDS: GABAPENTIN 400MG CAPSULE PO SCH ×3 (06:23→21:16)
[2020-03-21] MEDS: BLOOD SUGAR DIAGNOSTIC STRIP TEST SCH ×4 (06:23→20:48)
[2020-03-21] MEDS: INSULIN LISPRO (LOW DOSE) 100 UNITS/ML SUBCUT SCH ×3 (06:23→16:48)
[2020-03-21 08:19] VITALS: BP 120/60
[2020-03-21] MEDS: METFORMIN HCL 500MG TABLET PO SCH (08:38)
[2020-03-21] MEDS: DOCUSATE SODIUM 250MG CAPSULE PO SCH ×2 (08:38→17:25)
[2020-03-21] MEDS: CLOPIDOGREL 75MG TABLET PO SCH (08:38)
[2020-03-21] MEDS: ASPIRIN 81MG TABLET PO SCH (08:38)
[2020-03-21] MEDS: NICOTINE 14MG PATCH TD SCH (08:38)
[2020-03-21] MEDS: LISINOPRIL 20MG TABLET PO SCH ×2 (08:38→20:47)
[2020-03-21 13:30] VITALS: BP 109/47
[2020-03-21] MEDS: LIDOCAINE 5% PATCH TOP SCH (13:58)
[2020-03-21] MEDS ORDERED: DOCUSATE SODIUM 100MG CAPSULE PO NR (14:30)
[2020-03-21 20:00] VITALS: BP 122/61
[2020-03-21] MEDS: BISACODYL 5MG TABLET PO PRN (20:47)
[2020-03-21] MEDS: SENNOSIDES 8.6MG TABLET PO SCH (20:47)
[2020-03-21] MEDS: ATORVASTATIN CALCIUM 20MG TABLET PO SCH (20:47)
[2020-03-21] MEDS: TAMSULOSIN HCL 0.4MG SR CAPSULE PO SCH (20:47)
[2020-03-21] MEDS: FAMOTIDINE 20MG TABLET PO SCH (20:47)
[2020-03-22] MEDS: BLOOD SUGAR DIAGNOSTIC STRIP TEST SCH ×4 (06:00→20:07)
[2020-03-22] MEDS: GABAPENTIN 400MG CAPSULE PO SCH ×3 (06:00→21:01)
[2020-03-22] MEDS: INSULIN LISPRO (LOW DOSE) 100 UNITS/ML SUBCUT SCH ×3 (06:04→16:23)
[2020-03-22 06:27] LABS: BASOPHILS % 1.2 % (0.0-2.0); HEMATOCRIT. 29.4 % (36.0-48.0); HEMOGLOBIN. 9.5 g/dL (12.0-16.0); LYMPHOCYTES % 20.7 % (20.0-50.0); MEAN CORPUSCULAR HEMOGLOBIN 25.9 pg (28.0-32.0); MEAN CORPUSCULAR VOLUME 79.8 fL (81.0-99.0); MEAN PLATELET VOLUME 8.6 fl (7.4-10.4); NEUTROPHILS % 68.1 % (40.0-76.0); PLATELET 267 x1000/uL (130-400); RED BLOOD CELL COUNT 3.68 mill/uL (4.2-5.4); RED CELL DISTRIBUTION WIDTH 18.3 % (11.6-14.6)
[2020-03-22 07:53] VITALS: BP 108/52
[2020-03-22] MEDS: NICOTINE 14MG PATCH TD SCH (08:13)
[2020-03-22] MEDS: LIDOCAINE 5% PATCH TOP SCH (08:13)
[2020-03-22] MEDS: CLOPIDOGREL 75MG TABLET PO SCH (08:15)
[2020-03-22] MEDS: MAGNESIUM HYDROXIDE 400MG/5ML 30ML UDC PO PRN (08:15)
[2020-03-22] MEDS: ASPIRIN 81MG TABLET PO SCH (08:15)
[2020-03-22] MEDS: LISINOPRIL 20MG TABLET PO SCH ×2 (08:15→20:07)
[2020-03-22] MEDS: METFORMIN HCL 500MG TABLET PO SCH (08:15)
[2020-03-22] MEDS: DOCUSATE SODIUM 250MG CAPSULE PO SCH ×2 (08:16→16:23)
[2020-03-22] MEDS ORDERED: LACTULOSE 20G/30ML UDC PO SCH ×2 (08:45→12:00)
[2020-03-22] MEDS ORDERED: CYANOCOBALAMIN 1000MCG/ML VIAL IM SCH (09:00)
[2020-03-22 20:00] VITALS: BP 117/45
[2020-03-22] MEDS: FAMOTIDINE 20MG TABLET PO SCH (20:06)
[2020-03-22] MEDS: ATORVASTATIN CALCIUM 20MG TABLET PO SCH (20:06)
[2020-03-22] MEDS: TAMSULOSIN HCL 0.4MG SR CAPSULE PO SCH (20:06)
[2020-03-22] MEDS: SENNOSIDES 8.6MG TABLET PO SCH (20:07)
[2020-03-22] MEDS: DIPHENHYDRAMINE 25MG CAPSULE PO PRN (21:01)
[2020-03-23] MEDS: BLOOD SUGAR DIAGNOSTIC STRIP TEST SCH ×4 (05:38→20:05)
[2020-03-23] MEDS: GABAPENTIN 400MG CAPSULE PO SCH ×3 (05:38→21:21)
[2020-03-23] MEDS: INSULIN LISPRO (LOW DOSE) 100 UNITS/ML SUBCUT SCH ×3 (06:28→16:55)
[2020-03-23 07:36] VITALS: BP 106/51
[2020-03-23] MEDS: LISINOPRIL 20MG TABLET PO SCH ×2 (08:11→20:05)
[2020-03-23] MEDS: CLOPIDOGREL 75MG TABLET PO SCH (08:11)
[2020-03-23] MEDS: DOCUSATE SODIUM 250MG CAPSULE PO SCH ×2 (08:11→16:49)
[2020-03-23] MEDS: LIDOCAINE 5% PATCH TOP SCH (08:11)
[2020-03-23] MEDS: METFORMIN HCL 500MG TABLET PO SCH (08:11)
[2020-03-23] MEDS: NICOTINE 14MG PATCH TD SCH (08:11)
[2020-03-23] MEDS: ASPIRIN 81MG TABLET PO SCH (08:11)
[2020-03-23 20:00] VITALS: BP 129/41
[2020-03-23] MEDS: ATORVASTATIN CALCIUM 20MG TABLET PO SCH (20:04)
[2020-03-23] MEDS: TAMSULOSIN HCL 0.4MG SR CAPSULE PO SCH (20:04)
[2020-03-23] MEDS: FAMOTIDINE 20MG TABLET PO SCH (20:04)
[2020-03-23] MEDS: SENNOSIDES 8.6MG TABLET PO SCH (20:04)
[2020-03-23] MEDS: DIPHENHYDRAMINE 25MG CAPSULE PO PRN (20:51)
[2020-03-24] MEDS: GABAPENTIN 400MG CAPSULE PO SCH ×3 (05:52→21:25)
[2020-03-24] MEDS: BLOOD SUGAR DIAGNOSTIC STRIP TEST SCH ×4 (05:52→21:00)
[2020-03-24] MEDS: INSULIN LISPRO (LOW DOSE) 100 UNITS/ML SUBCUT SCH ×3 (06:40→17:05)
[2020-03-24 07:49] LABS: BASOPHILS % 0.8 % (0.0-2.0); EOSINOPHILS % 4.6 % (0.0-5.0); HEMATOCRIT. 27.1 % (36.0-48.0); HEMOGLOBIN. 8.8 g/dL (12.0-16.0); LYMPHOCYTES % 23.6 % (20.0-50.0); MEAN CORPUSCULAR HEMOGLOBIN 26.1 pg (28.0-32.0); MEAN PLATELET VOLUME 8.3 fl (7.4-10.4); MONOCYTES % 7.4 % (2.0-8.0); NEUTROPHILS % 63.6 % (40.0-76.0); PLATELET 231 x1000/uL (130-400); RED BLOOD CELL COUNT 3.39 mill/uL (4.2-5.4); RED CELL DISTRIBUTION WIDTH 20.1 % (11.6-14.6)
[2020-03-24 08:00] VITALS: BP 102/42
[2020-03-24 08:09] VITALS: BP 122/72
[2020-03-24] MEDS: CLOPIDOGREL 75MG TABLET PO SCH (08:45)
[2020-03-24] MEDS: LISINOPRIL 20MG TABLET PO SCH ×2 (08:46→21:04)
[2020-03-24] MEDS: ASPIRIN 81MG TABLET PO SCH (08:46)
[2020-03-24] MEDS: DOCUSATE SODIUM 250MG CAPSULE PO SCH ×2 (08:46→16:50)
[2020-03-24] MEDS: LIDOCAINE 5% PATCH TOP SCH (08:47)
[2020-03-24] MEDS: METFORMIN HCL 500MG TABLET PO SCH (08:47)
[2020-03-24] MEDS: NICOTINE 14MG PATCH TD SCH (08:47)
[2020-03-24] MEDS: NYSTATIN POWDER 15GM TOP SCH ×2 (12:43→17:06)
[2020-03-24 20:00] VITALS: BP 147/49
[2020-03-24] MEDS: ATORVASTATIN CALCIUM 20MG TABLET PO SCH (21:03)
[2020-03-24] MEDS: SENNOSIDES 8.6MG TABLET PO SCH (21:04)
[2020-03-24] MEDS: FAMOTIDINE 20MG TABLET PO SCH (21:04)
[2020-03-24] MEDS: TAMSULOSIN HCL 0.4MG SR CAPSULE PO SCH (21:05)
[2020-03-24] MEDS: DIPHENHYDRAMINE 25MG CAPSULE PO PRN (21:24)
[2020-03-25] MEDS: ACETAMINOPHEN 325MG TABLET PO PRN ×2 (04:55→20:41)
[2020-03-25] MEDS: MAGNESIUM HYDROXIDE 400MG/5ML 30ML UDC PO PRN (05:06)
[2020-03-25] MEDS: BLOOD SUGAR DIAGNOSTIC STRIP TEST SCH ×4 (06:24→21:00)
[2020-03-25] MEDS: GABAPENTIN 400MG CAPSULE PO SCH ×3 (06:25→21:27)
[2020-03-25] MEDS: INSULIN LISPRO (LOW DOSE) 100 UNITS/ML SUBCUT SCH ×3 (06:27→17:10)
[2020-03-25 08:00] VITALS: BP 128/55
[2020-03-25] MEDS: CLOPIDOGREL 75MG TABLET PO SCH (08:45)
[2020-03-25] MEDS: LISINOPRIL 20MG TABLET PO SCH ×2 (08:45→20:40)
[2020-03-25] MEDS: ASPIRIN 81MG TABLET PO SCH (08:45)
[2020-03-25] MEDS: DOCUSATE SODIUM 250MG CAPSULE PO SCH ×2 (08:45→16:51)
[2020-03-25] MEDS: METFORMIN HCL 500MG TABLET PO SCH (08:45)
[2020-03-25] MEDS: NICOTINE 14MG PATCH TD SCH (08:47)
[2020-03-25] MEDS: LIDOCAINE 5% PATCH TOP SCH (08:48)
[2020-03-25] MEDS: NYSTATIN POWDER 15GM TOP SCH ×3 (08:52→17:11)
[2020-03-25] MEDS: INSULIN GLARGINE UD 100 UNITS/ML SYR SUBCUT SCH (12:16)
[2020-03-25 20:00] VITALS: BP 149/58
[2020-03-25] MEDS: ATORVASTATIN CALCIUM 20MG TABLET PO SCH (20:40)
[2020-03-25] MEDS: FAMOTIDINE 20MG TABLET PO SCH (20:40)
[2020-03-25] MEDS: TAMSULOSIN HCL 0.4MG SR CAPSULE PO SCH (20:41)
[2020-03-25] MEDS: SENNOSIDES 8.6MG TABLET PO SCH (20:41)
[2020-03-25] MEDS: DIPHENHYDRAMINE 25MG CAPSULE PO PRN (21:27)
[2020-03-26] MEDS: GABAPENTIN 400MG CAPSULE PO SCH ×3 (06:28→22:17)
[2020-03-26] MEDS: ACETAMINOPHEN 325MG TABLET PO PRN ×2 (06:28→22:17)
[2020-03-26] MEDS: BLOOD SUGAR DIAGNOSTIC STRIP TEST SCH ×4 (06:28→21:00)
[2020-03-26] MEDS: INSULIN LISPRO (LOW DOSE) 100 UNITS/ML SUBCUT SCH ×3 (06:31→17:00)
[2020-03-26 06:40] LABS: BASOPHILS % 1.2 % (0.0-2.0); EOSINOPHILS % 4.5 % (0.0-5.0); HEMATOCRIT. 29.1 % (36.0-48.0); HEMOGLOBIN. 9.3 g/dL (12.0-16.0); LYMPHOCYTES % 27.2 % (20.0-50.0); MEAN CORPUSCULAR HEMOGLOBIN 26.1 pg (28.0-32.0); MEAN CORPUSCULAR VOLUME 81.5 fL (81.0-99.0); MEAN PLATELET VOLUME 8.2 fl (7.4-10.4); MONOCYTES % 8.4 % (2.0-8.0); NEUTROPHILS % 58.7 % (40.0-76.0); PLATELET 215 x1000/uL (130-400); RED BLOOD CELL COUNT 3.57 mill/uL (4.2-5.4); RED CELL DISTRIBUTION WIDTH 20.9 % (11.6-14.6)
[2020-03-26 06:57] LABS: CHLORIDE 108 mEq/L (98-107)
[2020-03-26 07:27] VITALS: BP 125/69
[2020-03-26] MEDS: CLOPIDOGREL 75MG TABLET PO SCH (08:28)
[2020-03-26] MEDS: DOCUSATE SODIUM 250MG CAPSULE PO SCH ×2 (08:28→16:41)
[2020-03-26] MEDS: LISINOPRIL 20MG TABLET PO SCH ×2 (08:28→21:31)
[2020-03-26] MEDS: NICOTINE 14MG PATCH TD SCH (08:28)
[2020-03-26] MEDS: METFORMIN HCL 500MG TABLET PO SCH (08:28)
[2020-03-26] MEDS: LIDOCAINE 5% PATCH TOP SCH (08:28)
[2020-03-26] MEDS: ASPIRIN 81MG TABLET PO SCH (08:28)
[2020-03-26] MEDS: NYSTATIN POWDER 15GM TOP SCH ×3 (08:33→16:41)
[2020-03-26] MEDS: INSULIN GLARGINE UD 100 UNITS/ML SYR SUBCUT SCH (09:50)
[2020-03-26] MEDS ORDERED: LACTULOSE 20G/30ML UDC PO PRN (17:15)
[2020-03-26] MEDS ORDERED: LACTULOSE 20G/30ML UDC PO SCH (17:41)
[2020-03-26 20:00] VITALS: BP 147/63
[2020-03-26] MEDS: ATORVASTATIN CALCIUM 20MG TABLET PO SCH (21:31)
[2020-03-26] MEDS: TAMSULOSIN HCL 0.4MG SR CAPSULE PO SCH (21:31)
[2020-03-26] MEDS: SENNOSIDES 8.6MG TABLET PO SCH (21:31)
[2020-03-26] MEDS: DIPHENHYDRAMINE 25MG CAPSULE PO PRN (22:17)
[2020-03-26] MEDS: FAMOTIDINE 20MG TABLET PO SCH (22:17)
[2020-03-27] MEDS: ACETAMINOPHEN 325MG TABLET PO PRN ×3 (04:07→16:04)
[2020-03-27] MEDS: GABAPENTIN 400MG CAPSULE PO SCH ×3 (06:06→22:12)
[2020-03-27] MEDS: BLOOD SUGAR DIAGNOSTIC STRIP TEST SCH ×4 (06:14→21:08)
[2020-03-27] MEDS: INSULIN LISPRO (LOW DOSE) 100 UNITS/ML SUBCUT SCH ×3 (06:14→16:06)
[2020-03-27 07:49] VITALS: BP 111/53
[2020-03-27] MEDS: LIDOCAINE 5% PATCH TOP SCH (08:30)
[2020-03-27] MEDS: DOCUSATE SODIUM 250MG CAPSULE PO SCH ×2 (08:31→16:03)
[2020-03-27] MEDS: LISINOPRIL 20MG TABLET PO SCH ×2 (08:31→20:58)
[2020-03-27] MEDS: NICOTINE 14MG PATCH TD SCH (08:31)
[2020-03-27] MEDS: CLOPIDOGREL 75MG TABLET PO SCH (08:31)
[2020-03-27] MEDS: ASPIRIN 81MG TABLET PO SCH (08:31)
[2020-03-27] MEDS: ERGOCALCIFEROL 50000UNITS CAPSULE PO SCH (08:31)
[2020-03-27] MEDS: METFORMIN HCL 500MG TABLET PO SCH (08:31)
[2020-03-27] MEDS: LINAGLIPTIN 5MG TABLET PO SCH (08:31)
[2020-03-27] MEDS: NYSTATIN POWDER 15GM TOP SCH ×3 (08:32→16:23)
[2020-03-27] MEDS: INSULIN GLARGINE UD 100 UNITS/ML SYR SUBCUT SCH (10:47)
[2020-03-27] MEDS: TRAMADOL 50MG TABLET PO PRN ×2 (12:04→20:57)
[2020-03-27 20:00] VITALS: BP 144/59
[2020-03-27] MEDS: ATORVASTATIN CALCIUM 20MG TABLET PO SCH (20:56)
[2020-03-27] MEDS: FAMOTIDINE 20MG TABLET PO SCH (20:56)
[2020-03-27] MEDS: TAMSULOSIN HCL 0.4MG SR CAPSULE PO SCH (20:58)
[2020-03-27] MEDS: SENNOSIDES 8.6MG TABLET PO SCH (20:58)
[2020-03-28] MEDS: GABAPENTIN 400MG CAPSULE PO SCH ×3 (05:39→21:10)
[2020-03-28] MEDS: BLOOD SUGAR DIAGNOSTIC STRIP TEST SCH ×4 (05:44→21:17)
[2020-03-28] MEDS: TRAMADOL 50MG TABLET PO PRN ×2 (05:46→16:26)
[2020-03-28] MEDS: INSULIN LISPRO (LOW DOSE) 100 UNITS/ML SUBCUT SCH ×3 (07:00→16:17)
[2020-03-28 07:52] VITALS: BP 122/51
[2020-03-28] MEDS: LISINOPRIL 20MG TABLET PO SCH ×2 (08:35→21:10)
[2020-03-28] MEDS: CLOPIDOGREL 75MG TABLET PO SCH (08:35)
[2020-03-28] MEDS: DOCUSATE SODIUM 250MG CAPSULE PO SCH ×2 (08:35→16:16)
[2020-03-28] MEDS: ASPIRIN 81MG TABLET PO SCH (08:35)
[2020-03-28] MEDS: LINAGLIPTIN 5MG TABLET PO SCH (08:35)
[2020-03-28] MEDS: NICOTINE 14MG PATCH TD SCH (08:36)
[2020-03-28] MEDS: LIDOCAINE 5% PATCH TOP SCH (08:36)
[2020-03-28] MEDS: NYSTATIN POWDER 15GM TOP SCH ×3 (08:38→16:19)
[2020-03-28 08:41] LABS: BASOPHILS % 1.1 % (0.0-2.0); EOSINOPHILS % 4.4 % (0.0-5.0); HEMATOCRIT. 28.6 % (36.0-48.0); HEMOGLOBIN. 9.3 g/dL (12.0-16.0); LYMPHOCYTES % 20.8 % (20.0-50.0); MEAN CORPUSCULAR HEMOGLOBIN 26.5 pg (28.0-32.0); MEAN CORPUSCULAR VOLUME 81.5 fL (81.0-99.0); MEAN PLATELET VOLUME 8.4 fl (7.4-10.4); MONOCYTES % 7.6 % (2.0-8.0); NEUTROPHILS % 66.1 % (40.0-76.0); PLATELET 217 x1000/uL (130-400); RED CELL DISTRIBUTION WIDTH 22.1 % (11.6-14.6)
[2020-03-28] MEDS: ONDANSETRON HCL 4MG TABLET PO PRN (09:47)
[2020-03-28] MEDS: INSULIN GLARGINE UD 100 UNITS/ML SYR SUBCUT SCH (10:17)
[2020-03-28 12:30] LABS: PLATELET ESTIMATE NORMAL
[2020-03-28] MEDS: METFORMIN HCL 500MG TABLET PO SCH (12:32)
[2020-03-28] MEDS ORDERED: ONDANSETRON 4MG ODT PO PRN (14:00)
[2020-03-28] MEDS: ACETAMINOPHEN 325MG TABLET PO PRN ×2 (14:06→21:11)
[2020-03-28] MEDS: ATORVASTATIN CALCIUM 20MG TABLET PO SCH (21:10)
[2020-03-28] MEDS: SENNOSIDES 8.6MG TABLET PO SCH (21:10)
[2020-03-28] MEDS: FAMOTIDINE 20MG TABLET PO SCH (21:10)
[2020-03-28] MEDS: TAMSULOSIN HCL 0.4MG SR CAPSULE PO SCH (21:10)
[2020-03-28 22:47] VITALS: BP 135/49
[2020-03-29] MEDS: BLOOD SUGAR DIAGNOSTIC STRIP TEST SCH ×4 (06:07→20:30)
[2020-03-29] MEDS: INSULIN LISPRO (LOW DOSE) 100 UNITS/ML SUBCUT SCH ×3 (06:07→17:00)
[2020-03-29] MEDS: GABAPENTIN 400MG CAPSULE PO SCH ×3 (06:08→21:06)
[2020-03-29 07:59] VITALS: BP 125/83
[2020-03-29] MEDS: LINAGLIPTIN 5MG TABLET PO SCH (08:55)
[2020-03-29] MEDS: CLOPIDOGREL 75MG TABLET PO SCH (08:55)
[2020-03-29] MEDS: METFORMIN HCL 500MG TABLET PO SCH (08:55)
[2020-03-29] MEDS: DOCUSATE SODIUM 250MG CAPSULE PO SCH ×2 (08:55→17:00)
[2020-03-29] MEDS: LIDOCAINE 5% PATCH TOP SCH (08:56)
[2020-03-29] MEDS: NICOTINE 14MG PATCH TD SCH (08:56)
[2020-03-29] MEDS: LISINOPRIL 20MG TABLET PO SCH ×2 (08:56→20:29)
[2020-03-29] MEDS: ASPIRIN 81MG TABLET PO SCH (08:56)
[2020-03-29] MEDS ORDERED: CYANOCOBALAMIN 1000MCG/ML VIAL IM SCH (09:00)
[2020-03-29] MEDS: NYSTATIN POWDER 15GM TOP SCH ×3 (09:16→17:00)
[2020-03-29] MEDS: INSULIN GLARGINE UD 100 UNITS/ML SYR SUBCUT SCH (11:37)
[2020-03-29] MEDS: LACTULOSE 20G/30ML UDC PO SCH ×3 (13:00→20:28)
[2020-03-29] MEDS: TRAMADOL 50MG TABLET PO PRN (13:17)
[2020-03-29] MEDS: ACETAMINOPHEN 325MG TABLET PO PRN (19:11)
[2020-03-29 20:00] VITALS: BP 129/48
[2020-03-29] MEDS: SENNOSIDES 8.6MG TABLET PO SCH (20:29)
[2020-03-29] MEDS: TAMSULOSIN HCL 0.4MG SR CAPSULE PO SCH (20:29)
[2020-03-29] MEDS: FAMOTIDINE 20MG TABLET PO SCH (20:29)
[2020-03-29] MEDS: ATORVASTATIN CALCIUM 20MG TABLET PO SCH (20:29)
[2020-03-29] MEDS: DIPHENHYDRAMINE 25MG CAPSULE PO PRN (20:30)
[2020-03-30] MEDS: GABAPENTIN 400MG CAPSULE PO SCH ×3 (06:16→21:14)
[2020-03-30] MEDS: INSULIN LISPRO (LOW DOSE) 100 UNITS/ML SUBCUT SCH ×3 (06:16→16:24)
[2020-03-30] MEDS: BLOOD SUGAR DIAGNOSTIC STRIP TEST SCH ×4 (06:16→20:12)
[2020-03-30] MEDS: TRAMADOL 50MG TABLET PO PRN ×3 (06:26→20:11)
[2020-03-30 08:05] VITALS: BP 138/72
[2020-03-30] MEDS: LIDOCAINE 5% PATCH TOP SCH (08:28)
[2020-03-30] MEDS: LISINOPRIL 20MG TABLET PO SCH ×2 (08:28→20:12)
[2020-03-30] MEDS: LINAGLIPTIN 5MG TABLET PO SCH (08:28)
[2020-03-30] MEDS: CLOPIDOGREL 75MG TABLET PO SCH (08:28)
[2020-03-30] MEDS: ASPIRIN 81MG TABLET PO SCH (08:28)
[2020-03-30] MEDS: METFORMIN HCL 500MG TABLET PO SCH (08:28)
[2020-03-30] MEDS: DOCUSATE SODIUM 250MG CAPSULE PO SCH ×2 (08:28→16:59)
[2020-03-30] MEDS: NICOTINE 14MG PATCH TD SCH (08:28)
[2020-03-30] MEDS: NYSTATIN POWDER 15GM TOP SCH ×3 (08:33→17:00)
[2020-03-30] MEDS: INSULIN GLARGINE UD 100 UNITS/ML SYR SUBCUT SCH (10:36)
[2020-03-30 20:00] VITALS: BP 146/50
[2020-03-30] MEDS: ATORVASTATIN CALCIUM 20MG TABLET PO SCH (20:11)
[2020-03-30] MEDS: FAMOTIDINE 20MG TABLET PO SCH (20:11)
[2020-03-30] MEDS: TAMSULOSIN HCL 0.4MG SR CAPSULE PO SCH (20:11)
[2020-03-30] MEDS: SENNOSIDES 8.6MG TABLET PO SCH (20:12)
[2020-03-30] MEDS: DIPHENHYDRAMINE 25MG CAPSULE PO PRN (21:08)
[2020-03-31] MEDS: GABAPENTIN 400MG CAPSULE PO SCH ×2 (05:21→13:22)
[2020-03-31] MEDS: BLOOD SUGAR DIAGNOSTIC STRIP TEST SCH ×2 (05:21→10:59)
[2020-03-31] MEDS: INSULIN LISPRO (LOW DOSE) 100 UNITS/ML SUBCUT SCH ×2 (05:22→13:00)
[2020-03-31 08:18] VITALS: BP 134/61
[2020-03-31] MEDS: ASPIRIN 81MG TABLET PO SCH (08:41)
[2020-03-31] MEDS: NICOTINE 14MG PATCH TD SCH (08:41)
[2020-03-31] MEDS: LIDOCAINE 5% PATCH TOP SCH (08:41)
[2020-03-31] MEDS: METFORMIN HCL 500MG TABLET PO SCH (08:41)
[2020-03-31] MEDS: DOCUSATE SODIUM 250MG CAPSULE PO SCH (08:41)
[2020-03-31] MEDS: LISINOPRIL 20MG TABLET PO SCH (08:42)
[2020-03-31] MEDS: NYSTATIN POWDER 15GM TOP SCH ×2 (08:42→13:22)
[2020-03-31] MEDS: LINAGLIPTIN 5MG TABLET PO SCH (08:42)
[2020-03-31] MEDS: CLOPIDOGREL 75MG TABLET PO SCH (08:42)
[2020-03-31] MEDS ORDERED: INSULIN GLARGINE UD 100 UNITS/ML SYR SUBCUT SCH (10:00)
[2020-03-31] MEDS: TRAMADOL 50MG TABLET PO PRN (10:41)
[2020-03-31 14:33] VITALS: BP 132/81
== END 2020-03-31 15:20 | disposition home health service (06) | DRG 64 ==
PROVIDERS: ADMIT Physical Medicine & Rehabilitation Spinal Cord Injury Medicine; ATTEND Internal Medicine
DX: I63.81 Other cerebral infarction due to occlusion or stenosis of small artery (principal); E43 Unspecified severe protein-calorie malnutrition; S82.002A Unspecified fracture of left patella, initial encounter for closed fracture; N17.9 Acute kidney failure, unspecified; N39.0 Urinary tract infection, site not specified; W18.39XA Other fall on same level, initial encounter; R13.10 Dysphagia, unspecified; R41.89 Other symptoms and signs involving cognitive functions and awareness; R47.01 Aphasia; R47.1 Dysarthria and anarthria; R53.81 Other malaise; E11.51 Type 2 diabetes mellitus with diabetic peripheral angiopathy without gangrene; E78.00 Pure hypercholesterolemia, unspecified; I65.23 Occlusion and stenosis of bilateral carotid arteries; E86.0 Dehydration; R79.89 Other specified abnormal findings of blood chemistry; R33.9 Retention of urine, unspecified; I25.10 Atherosclerotic heart disease of native coronary artery without angina pectoris; I10 Essential (primary) hypertension; B35.1 Tinea unguium; D50.9 Iron deficiency anemia, unspecified; E11.65 Type 2 diabetes mellitus with hyperglycemia; E53.8 Deficiency of other specified B group vitamins; E55.9 Vitamin D deficiency, unspecified; E78.5 Hyperlipidemia, unspecified; K59.00 Constipation, unspecified; M16.11 Unilateral primary osteoarthritis, right hip; E66.9 Obesity, unspecified; M48.061 Spinal stenosis, lumbar region without neurogenic claudication; M17.12 Unilateral primary osteoarthritis, left knee; M51.36 Other intervertebral disc degeneration, lumbar region; Y93.89 Activity, other specified; Y92.89 Other specified places as the place of occurrence of the external cause; Y99.8 Other external cause status; Z82.49 Family history of ischemic heart disease and other diseases of the circulatory system; Z83.3 Family history of diabetes mellitus; Z86.73 Personal history of transient ischemic attack (TIA), and cerebral infarction without residual deficits; I25.2 Old myocardial infarction; Z87.891 Personal history of nicotine dependence; Z95.5 Presence of coronary angioplasty implant and graft; Z68.29 Body mass index [BMI] 29.0-29.9, adult; Z87.81 Personal history of (healed) traumatic fracture
CPT/HCPCS: 36415; 73560; 80048; 80053; 81003; 82270; 82306; 82533; 82607; 82728; 82746; 82962; 83036; 83540; 83550; 83735; 84100; 84134; 84439; 84443; 84681; 85025; 87077; 87186; 92523; 92610; 93970; 97110; 97116; 97129; 97162; 97167; 97530; 97535; 97542; J1815; J3420; J7030; J7050; L1830; Q0162; Q0163